=== PATIENT | male | born 1930 | race Caucasian/White ===

== ENCOUNTER 2016-09-01 10:01 | Inpatient (IN) | payer MEDICARE, OTHER ==
[~2016-09-01] VITALS: Ht 162.6 cm; Wt 74.6 kg
[~2016-09-01 10:01] MED LIST: ASPIRIN EC81 MG PO
[2016-09-01 11:56] LABS: HEMOGLOBIN 12.3 gm/dl (14.0-17.5); RED BLOOD COUNT 3.78 M/UL (4.20-5.50); WHITE BLOOD COUNT 10.3 K/UL (4.5-11.0)
[2016-09-01] MEDS ORDERED: PREDNISONE5 MG PO (17:56)
[2016-09-01] MEDS ORDERED: ADVAIR 500-501 EACH INH (17:57)
[2016-09-01] MEDS ORDERED: ZOFRAN4 MG PO (17:58)
[2016-09-01] MEDS ORDERED: FERROUS SULFAT325 MG PO (17:59)
[2016-09-01] MEDS ORDERED: ELIQUIS 2.5 MG2.5 MG PO (18:03)
[2016-09-01] MEDS ORDERED: GLUCOPHAGE500 MG PO (18:03)
[2016-09-01] MEDS ORDERED: KLOR-CON 1010 MEQ PO (18:04)
[2016-09-01] MEDS ORDERED: ZYLOPRIM 100 M100 MG PO (18:04)
[2016-09-01] MEDS ORDERED: PRILOSEC OTC20 MG PO (18:04)
[2016-09-01] MEDS ORDERED: LASIX40 MG PO ×2 (18:05→18:09)
[2016-09-01] MEDS ORDERED: COREG 12.5MG12.5 MG PO (18:05)
[2016-09-01] MEDS ORDERED: SINGULAIR10 MG PO (18:05)
[2016-09-01] MEDS ORDERED: METOLAZONE5 MG PO (18:08)
[2016-09-01] MEDS ORDERED: ENTRESTO PO (18:15)
[2016-09-02 07:00] LABS: HEMOGLOBIN 11.4 gm/dl (14.0-17.5); RED BLOOD COUNT 3.55 M/UL (4.20-5.50); WHITE BLOOD COUNT 9.3 K/UL (4.5-11.0)
[2016-09-03 05:01] LABS: HEMOGLOBIN 12.2 gm/dl (14.0-17.5); RED BLOOD COUNT 3.77 M/UL (4.20-5.50); WHITE BLOOD COUNT 10.5 K/UL (4.5-11.0)
[2016-09-04 05:17] LABS: HEMOGLOBIN 11.1 gm/dl (14.0-17.5); RED BLOOD COUNT 3.47 M/UL (4.20-5.50); WHITE BLOOD COUNT 10.4 K/UL (4.5-11.0)
[2016-09-05 04:38] LABS: HEMOGLOBIN 10.9 gm/dl (14.0-17.5); RED BLOOD COUNT 3.38 M/UL (4.20-5.50); WHITE BLOOD COUNT 9.6 K/UL (4.5-11.0)
[2016-09-08 04:43] LABS: HEMOGLOBIN 9.9 gm/dl (14.0-17.5); RED BLOOD COUNT 3.06 M/UL (4.20-5.50); WHITE BLOOD COUNT 8.8 K/UL (4.5-11.0)
[2016-09-09 04:55] LABS: HEMOGLOBIN 9.9 gm/dl (14.0-17.5); RED BLOOD COUNT 3.1 M/UL (4.20-5.50); WHITE BLOOD COUNT 10.5 K/UL (4.5-11.0)
[2016-09-09] MEDS ORDERED: ELIQUIS2.5 MG PO (19:57)
[2016-09-09] MEDS ORDERED: ZYLOPRIM 100 M100 MG PO (19:57)
[2016-09-09] MEDS ORDERED: COREG 12.5MG12.5 MG PO (19:58)
[2016-09-09] MEDS ORDERED: FERROUS SULFAT325 MG PO (19:58)
[2016-09-09] MEDS ORDERED: PROTONIX40 MG PO (19:59)
[2016-09-09] MEDS ORDERED: PREDNISONE5 MG PO (20:00)
[2016-09-09] MEDS ORDERED: ENTRESTO (20:05)
[2016-09-09] MEDS ORDERED: KLOR-CON M1010 MEQ PO (20:06)
[2016-09-09] MEDS ORDERED: ZOFRAN4 MG PO (20:07)
[2016-09-09] MEDS ORDERED: ADVAIR 500-501 EACH INH (20:09)
[2016-09-09] MEDS ORDERED: PRILOSEC OTC20 MG PO (20:09)
[2016-09-09] MEDS ORDERED: LASIX 40 MG TAB40 MG PO (20:10)
[2016-09-09] MEDS ORDERED: METOLAZONE5 MG PO (20:11)
[2016-09-09] MEDS ORDERED: ASPIRIN81 MG PO (20:11)
[2016-09-09] MEDS ORDERED: HOME O2 (20:12)
[2016-11-27] MEDS ORDERED: GLUCOPHAGE 500500 MG PO (17:56)
[2016-11-27] MEDS ORDERED: ZYLOPRIM 100 M100 MG PO (17:58)
[2016-12-07] MEDS ORDERED: LEVAQUIN250 MG PO (15:59)
[2016-12-07] MEDS ORDERED: IPRAT-ALBUT 0.5-3 ML INH (16:00)
[2016-12-07] MEDS ORDERED: JUVEN PACKET1 EACH PO (16:01)
[2016-12-07] MEDS ORDERED: GLUCERNA237 ML PO (16:01)
[2016-12-07] MEDS ORDERED: COLACE 100MG C100 MG PO (16:02)
[2016-12-07] MEDS ORDERED: MIRALAX17 GM PO (16:03)
[2017-02-01] MEDS ORDERED: METOPROLOL TART50 MG PO (20:18)
[2017-02-01] MEDS ORDERED: NEURONTIN 300300 MG PO (20:19)
[2017-02-01] MEDS ORDERED: ATORVASTATIN CA80 MG PO (20:19)
[2017-02-01] MEDS ORDERED: BUMETANIDE2 MG PO (20:19)
[2017-02-01] MEDS ORDERED: PROVENTIL HFA 61 INH INH (20:20)
[2017-02-04] MEDS ORDERED: ELIQUIS 2.5 MG2.5 MG PO (17:40)
[2017-02-08] MEDS ORDERED: LORTAB 5-325 M1 EACH PO (16:14)
[2017-02-08] MEDS ORDERED: DURAGESIC 12 M1 EACH TD (16:17)
[2017-02-08] MEDS ORDERED: ATIVAN 1MG TABLE1 MG PO (16:18)
== END 2016-09-09 20:45 | disposition home health service (06) | DRG 300 ==
LOC: ER1 10:01 → MED SURG 4 15:08 → ZEROF 15:08 → MED SURG 4 22:27
PROVIDERS: Internal Medicine; Internal Medicine Nephrology; Physician Assistant; ADMIT Internal Medicine
PROC: B41D1ZZ Fluoroscopy of Aorta and Bilateral Lower Extremity Arteries using Low Osmolar Contrast (ICD-10-PCS; principal; 2016-09-07)
DX: I70.262 Atherosclerosis of native arteries of extremities with gangrene, left leg (principal); I13.0 Hypertensive heart and chronic kidney disease with heart failure and stage 1 through stage 4 chronic kidney disease, or unspecified chronic kidney disease; I50.42 Chronic combined systolic (congestive) and diastolic (congestive) heart failure; N17.9 Acute kidney failure, unspecified; I70.92 Chronic total occlusion of artery of the extremities; L03.116 Cellulitis of left lower limb; L97.521 Non-pressure chronic ulcer of other part of left foot limited to breakdown of skin; E11.621 Type 2 diabetes mellitus with foot ulcer; E11.22 Type 2 diabetes mellitus with diabetic chronic kidney disease; N18.3 Chronic kidney disease, stage 3 (moderate); D64.9 Anemia, unspecified; I48.2 Chronic atrial fibrillation; I27.2 Other secondary pulmonary hypertension; J44.9 Chronic obstructive pulmonary disease, unspecified; R09.02 Hypoxemia; I25.10 Atherosclerotic heart disease of native coronary artery without angina pectoris; J45.909 Unspecified asthma, uncomplicated; E78.5 Hyperlipidemia, unspecified; I08.3 Combined rheumatic disorders of mitral, aortic and tricuspid valves; K43.2 Incisional hernia without obstruction or gangrene; K80.20 Calculus of gallbladder without cholecystitis without obstruction; E87.6 Hypokalemia; E83.42 Hypomagnesemia; K21.9 Gastro-esophageal reflux disease without esophagitis; I95.2 Hypotension due to drugs; T46.5X5A Adverse effect of other antihypertensive drugs, initial encounter; R13.10 Dysphagia, unspecified; E66.9 Obesity, unspecified; R63.4 Abnormal weight loss; R11.2 Nausea with vomiting, unspecified; Z95.1 Presence of aortocoronary bypass graft; Z86.73 Personal history of transient ischemic attack (TIA), and cerebral infarction without residual deficits; Z72.3 Lack of physical exercise; Z68.28 Body mass index [BMI] 28.0-28.9, adult; Z79.01 Long term (current) use of anticoagulants; Z79.84 Long term (current) use of oral hypoglycemic drugs; Z79.52 Long term (current) use of systemic steroids; Z79.899 Other long term (current) drug therapy; Z88.0 Allergy status to penicillin; Z98.890 Other specified postprocedural states; Z82.49 Family history of ischemic heart disease and other diseases of the circulatory system; Z82.3 Family history of stroke
CPT/HCPCS: 36200; 36415; 71010; 73630; 75630; 76700; 78315; 80048; 80053; 80202; 82570; 82962; 83735; 83880; 84132; 84156; 85025; 85027; 85347; 86140; 87040; 87070; 87205; 93005; 93926; 94640; 94664; 96365; 96366; 96367; 96375; 99284; A9503; C1769; C1887; J1335; J1644; J1956; J2270; J2550; J3010; J3370; J7030; J7050; Q9965

== ENCOUNTER 2016-11-01 22:08 | Emergency (ER) | payer MEDICARE, OTHER ==
[~2016-11-01 22:08] MED LIST changes: +ADVAIR 500-501 EACH INH; +ASPIRIN81 MG PO; +COREG 12.5MG12.5 MG PO; +ELIQUIS 2.5 MG2.5 MG PO; +ELIQUIS2.5 MG PO; +ENTRESTO; +ENTRESTO PO; +FERROUS SULFAT325 MG PO; +GLUCOPHAGE500 MG PO; +HOME O2; +KLOR-CON 1010 MEQ PO; +KLOR-CON M1010 MEQ PO; +LASIX 40 MG TAB40 MG PO; +LASIX40 MG PO; +METOLAZONE5 MG PO; +PREDNISONE5 MG PO; +PRILOSEC OTC20 MG PO; +PROTONIX40 MG PO; +SINGULAIR10 MG PO; +ZOFRAN4 MG PO; +ZYLOPRIM 100 M100 MG PO
[2016-11-27] MEDS ORDERED: GLUCOPHAGE 500500 MG PO (17:56)
[2016-11-27] MEDS ORDERED: ZYLOPRIM 100 M100 MG PO (17:58)
[2016-12-07] MEDS ORDERED: LEVAQUIN250 MG PO (15:59)
[2016-12-07] MEDS ORDERED: IPRAT-ALBUT 0.5-3 ML INH (16:00)
[2016-12-07] MEDS ORDERED: GLUCERNA237 ML PO (16:01)
[2016-12-07] MEDS ORDERED: JUVEN PACKET1 EACH PO (16:01)
[2016-12-07] MEDS ORDERED: COLACE 100MG C100 MG PO (16:02)
[2016-12-07] MEDS ORDERED: MIRALAX17 GM PO (16:03)
[2017-02-01] MEDS ORDERED: METOPROLOL TART50 MG PO (20:18)
[2017-02-01] MEDS ORDERED: NEURONTIN 300300 MG PO (20:19)
[2017-02-01] MEDS ORDERED: BUMETANIDE2 MG PO (20:19)
[2017-02-01] MEDS ORDERED: ATORVASTATIN CA80 MG PO (20:19)
[2017-02-01] MEDS ORDERED: PROVENTIL HFA 61 INH INH (20:20)
[2017-02-04] MEDS ORDERED: ELIQUIS 2.5 MG2.5 MG PO (17:40)
[2017-02-08] MEDS ORDERED: LORTAB 5-325 M1 EACH PO (16:14)
[2017-02-08] MEDS ORDERED: DURAGESIC 12 M1 EACH TD (16:17)
[2017-02-08] MEDS ORDERED: ATIVAN 1MG TABLE1 MG PO (16:18)
== END 2016-11-01 23:20 | disposition left against medical advice (07) ==
LOC: ER1 22:08
DX: Z53.21 Procedure and treatment not carried out due to patient leaving prior to being seen by health care provider (principal)

== ENCOUNTER 2016-11-03 16:04 | Inpatient (IN) | payer MEDICARE, OTHER ==
[~2016-11-03] VITALS: Ht 167.6 cm; Wt 69.7 kg
[2016-11-03] MEDS ORDERED: TRAMADOL HCL50 MG PO (20:07)
[2016-11-03] MEDS ORDERED: SINGULAIR10 MG PO (20:09)
[2016-11-03 23:30] LABS: HEMOGLOBIN 11.1 gm/dl (14.0-17.5); RED BLOOD COUNT 3.43 M/UL (4.20-5.50); WHITE BLOOD COUNT 7.9 K/UL (4.5-11.0)
[2016-11-04] MEDS ORDERED: ENTRESTO (00:14)
[2016-11-05 05:11] LABS: HEMOGLOBIN 11.9 gm/dl (14.0-17.5); RED BLOOD COUNT 3.76 M/UL (4.20-5.50); WHITE BLOOD COUNT 8.1 K/UL (4.5-11.0)
[2016-11-06 05:47] LABS: HEMOGLOBIN 11.8 gm/dl (14.0-17.5); RED BLOOD COUNT 3.67 M/UL (4.20-5.50); WHITE BLOOD COUNT 8.1 K/UL (4.5-11.0)
[2016-11-07 05:22] LABS: HEMOGLOBIN 11.7 gm/dl (14.0-17.5); RED BLOOD COUNT 3.71 M/UL (4.20-5.50); WHITE BLOOD COUNT 7.8 K/UL (4.5-11.0)
[2016-11-08 05:31] LABS: HEMOGLOBIN 10.8 gm/dl (14.0-17.5); RED BLOOD COUNT 3.42 M/UL (4.20-5.50); WHITE BLOOD COUNT 6.8 K/UL (4.5-11.0)
[2016-11-09 04:58] LABS: HEMOGLOBIN 11.2 gm/dl (14.0-17.5); RED BLOOD COUNT 3.54 M/UL (4.20-5.50); WHITE BLOOD COUNT 7.2 K/UL (4.5-11.0)
[2016-11-10] MEDS ORDERED: LEVAQUIN250 MG PO (09:21)
[2016-11-10] MEDS ORDERED: GLUCERNA237 ML PO (09:34)
[2016-11-27] MEDS ORDERED: GLUCOPHAGE 500500 MG PO (17:56)
[2016-11-27] MEDS ORDERED: ZYLOPRIM 100 M100 MG PO (17:58)
[2016-12-07] MEDS ORDERED: LEVAQUIN250 MG PO (15:59)
[2016-12-07] MEDS ORDERED: IPRAT-ALBUT 0.5-3 ML INH (16:00)
[2016-12-07] MEDS ORDERED: JUVEN PACKET1 EACH PO (16:01)
[2016-12-07] MEDS ORDERED: GLUCERNA237 ML PO (16:01)
[2016-12-07] MEDS ORDERED: COLACE 100MG C100 MG PO (16:02)
[2016-12-07] MEDS ORDERED: MIRALAX17 GM PO (16:03)
[2017-02-01] MEDS ORDERED: METOPROLOL TART50 MG PO (20:18)
[2017-02-01] MEDS ORDERED: NEURONTIN 300300 MG PO (20:19)
[2017-02-01] MEDS ORDERED: ATORVASTATIN CA80 MG PO (20:19)
[2017-02-01] MEDS ORDERED: BUMETANIDE2 MG PO (20:19)
[2017-02-01] MEDS ORDERED: PROVENTIL HFA 61 INH INH (20:20)
[2017-02-04] MEDS ORDERED: ELIQUIS 2.5 MG2.5 MG PO (17:40)
[2017-02-08] MEDS ORDERED: LORTAB 5-325 M1 EACH PO (16:14)
[2017-02-08] MEDS ORDERED: DURAGESIC 12 M1 EACH TD (16:17)
[2017-02-08] MEDS ORDERED: ATIVAN 1MG TABLE1 MG PO (16:18)
== END 2016-11-10 09:00 | DRG 240 ==
LOC: MED SURG 4 19:23
PROVIDERS: Emergency Medicine; Internal Medicine; Physician Assistant Medical; Podiatrist Foot & Ankle Surgery; ADMIT Internal Medicine
PROC: 0HRNXK3 Replacement of Left Foot Skin with Nonautologous Tissue Substitute, Full Thickness, External Approach (ICD-10-PCS; 2016-11-04)
PROC: 0Y6N0ZF Detachment at Left Foot, Partial 5th Ray, Open Approach (ICD-10-PCS; principal; 2016-11-04 10:15)
DX: E11.52 Type 2 diabetes mellitus with diabetic peripheral angiopathy with gangrene (principal); M86.9 Osteomyelitis, unspecified; I13.0 Hypertensive heart and chronic kidney disease with heart failure and stage 1 through stage 4 chronic kidney disease, or unspecified chronic kidney disease; I50.22 Chronic systolic (congestive) heart failure; L03.032 Cellulitis of left toe; I25.10 Atherosclerotic heart disease of native coronary artery without angina pectoris; I73.9 Peripheral vascular disease, unspecified; Z95.1 Presence of aortocoronary bypass graft; Z79.01 Long term (current) use of anticoagulants; Z86.73 Personal history of transient ischemic attack (TIA), and cerebral infarction without residual deficits; J44.9 Chronic obstructive pulmonary disease, unspecified; K21.9 Gastro-esophageal reflux disease without esophagitis; Z88.0 Allergy status to penicillin; I48.0 Paroxysmal atrial fibrillation; I25.5 Ischemic cardiomyopathy; I48.2 Chronic atrial fibrillation; E11.22 Type 2 diabetes mellitus with diabetic chronic kidney disease; I27.2 Other secondary pulmonary hypertension; I35.1 Nonrheumatic aortic (valve) insufficiency; Z79.82 Long term (current) use of aspirin; G47.00 Insomnia, unspecified; E87.6 Hypokalemia; D64.9 Anemia, unspecified; N18.3 Chronic kidney disease, stage 3 (moderate)
CPT/HCPCS: ECHO; 36415; 80048; 80053; 80202; 82565; 82607; 82962; 83540; 83550; 83735; 84100; 84132; 85027; 85610; 85730; 87070; 87205; 93005; 93306; 94664; C1713; J1940; J1956; J2250; J2270; J2795; J3370; J7030; J7050; J7070; J7120; Q4133